=== PATIENT | female | born 1990 | race Caucasian/White ===

== ENCOUNTER 2023-07-23 16:49 | Emergency (ER) | payer MEDICAID ==
[~2023-07-23] VITALS: Ht 154.9 cm; Wt 90.7 kg
[~2023-07-23 16:49] MED LIST: cephalexin
[2023-07-23 17:00] VITALS: BP_SYST 131; PULSE 124; RESP 20; TEMP 98.9; O2SAT 96
[2023-07-23 17:31] LABS: COVID19 ANTIGEN SOFIA FIA NEGATIVE (NEGATIVE); INFLUENZA TYPE A Negative (NEGATIVE); INFLUENZA TYPE B NEGATIVE (NEGATIVE)
== END 2023-07-23 19:30 | disposition left against medical advice (07) ==
LOC: SED 16:49
DX: R19.7 Diarrhea, unspecified (principal); R11.10 Vomiting, unspecified; Z20.822 Contact with and (suspected) exposure to COVID-19; Z53.21 Procedure and treatment not carried out due to patient leaving prior to being seen by health care provider
CPT/HCPCS: 36415; 71045; 99281